=== PATIENT | female | born 1930 | race Caucasian/White ===

== ENCOUNTER → 2016-07-01 10:31 | Outpatient (CLI) | payer MEDICARE, OTHER ==
[2015-11-29 11:46] VITALS: BMI 25.0
[~2016-07-01 10:31] MED LIST: ACIDOPHILUS LAC1 CAP PO; ATIVAN0.5 MG PO; BACTRIM 400-801 TAB PO; BROVANA15 MCG/2 M INH; CYCLOBENZAPRINE5 MG PO; DALIRESP500 MCG PO; ELIQUIS2.5 MG PO; FLORASTOR250 MG PO; HCTZ25 MG PO; HYDROCODONE-APA1 TAB PO; IPRAT-ALBUT 0.5-3 ML UPD; LOPRESSOR25 MG PO; LOVENOX40 MG/0.4 SC; MAXIPIME 1 GM/D51 G1 IV; MUCINEX600 MG PO; ONDANSETRON4 MG/2 M3 IV; OXYCODONE HCL5 MG PO; PREDNISONE20 MG PO; PROTONIX40 MG PO; PROVENTIL/2.5 MG/3 M INH; PULMICORT0.5 MG/21 UPD; SENOKOT-S TABLE1 TAB PO; SINGULAIR10 MG PO; TESSALON PERLE100 MG PO; VANCOMYCIN 1 GM/1 G1 IV; XOPENEX 1.1.25 MG/3 UPD
== END | disposition home or self-care (01) ==
LOC: D.RT 06-08 09:00
DX: J44.9 Chronic obstructive pulmonary disease, unspecified (principal)

== ENCOUNTER → 2016-11-02 16:55 | Outpatient (CLI) | payer MEDICARE, OTHER ==
[2015-11-29 11:46] VITALS: BMI 25.0
== END | disposition home or self-care (01) ==
LOC: D.MAMMO 10:30
DX: N63 Unspecified lump in breast (principal)

== ENCOUNTER → 2016-11-19 08:55 | Outpatient (CLI) | payer MEDICARE, OTHER ==
[2015-11-29 11:46] VITALS: BMI 25.0
== END | disposition home or self-care (01) ==
LOC: D.US 08:55
DX: R92.8 Other abnormal and inconclusive findings on diagnostic imaging of breast (principal)

== ENCOUNTER → 2016-12-13 12:56 | Outpatient (CLI) | payer MEDICARE, OTHER ==
[2015-11-29 11:46] VITALS: BMI 25.0
[~2016-12-13 12:56] MED LIST changes: +BIOTIN5 MG PO
== END | disposition home or self-care (01) ==
LOC: D.LAB 08:30 → D.RAD 09:00
DX: J44.9 Chronic obstructive pulmonary disease, unspecified (principal)

== ENCOUNTER 2016-12-28 06:27 | Day surgery (SDC) | payer MEDICARE, OTHER ==
[~2016-12-28 06:27] MED LIST changes: -BIOTIN5 MG PO
[2016-12-28 07:32] LABS: BASOPHILS 0.4 % (0-2); EOSINOPHILS 2.9 % (0-7); HEMATOCRIT 42.3 % (36.0-48.0); HEMOGLOBIN 13.4 g/dL (12-16); LYMPHOCYTES 18.5 % (15-50); MCH 31.9 pg (26.0-34.0); MCHC 31.7 g/dL (31.0-37.0); MCV 100.7 fL (80.0-100.0); MEAN PLATELET VOLUME 10.2 fL (7.4-10.4); NEUTROPHILS 65.2 % (40-80); RDW 12.1 % (11.5-14.5); WBC 5.5 10x3/uL (4.8-10.8)
[2016-12-28 07:44] LABS: PLATELET COUNT 238 10x3/uL (130-400)
[2016-12-28 07:45] LABS: ANION GAP 8.3 mmol/L (8-16); CALCIUM 9.7 mg/dL (8.5-10.1); CARBON DIOXIDE 35.7 mmol/L (21.0-32.0); CREATININE - SERUM 0.9 mg/dL (0.6-1.3)
[2016-12-28 07:54] LABS: APTT 28.2 SECONDS (22.8-39.4); INR 0.95 (0.85-1.17); PROTIME 12.5 SECONDS (11.6-15.0)
[2016-12-28] MEDS ORDERED: PROVENTIL/2.5 MG/3 M INH (10:15)
[2016-12-28] MEDS ORDERED: BIOTIN5 MG PO (10:21)
[2016-12-28 10:29] VITALS: BP 153/82; BMI 25.9
[2016-12-28] MEDS ORDERED: HYDROCODONE-APA1 TAB PO (12:36)
--- NOTE | 2016-12-28 14:40 | NUR ---
PATIENT AMBULATES TO BATHROOM AND VOIDS LARGE AMOUNT IN TOILET WITHOUT DIFFICULTY. PATIENT REMAINS ON 3 LPM NC O2, PATIENT REPORTS THAT SHE WEARS O2 AT ALL TIMES AT HOME AND THAT HER CURRENT AMOUNT OF SHORTNESS OF BREATH IS HER NORMAL. RIGHT WRIST PIV DC'D WITH TIP INTACT. PATIENT DRESSING IN PERSONAL CLOTHING
--- NOTE | 2016-12-28 14:45 | NUR ---
1435 ATE FULL LIQUID DIET. NO COMPLAINTS OF NAUSEA VOICED. 1 NORCO 10/325MG PO FOR PAIN. RANKS PAIN 3. Dany BISWAS R.N.
--- NOTE | 2016-12-28 14:57 | NUR ---
1440 REPORT TO Dany LEON R.N.. Dany BISWAS R.N.
--- NOTE | 2016-12-28 15:00 | NUR ---
DISCHARGE INSTRUCTIONS REVIEWED WITH PATIENT AND SON, DISCHARGED HOME VIA WHEELCHAIR TO PRIVATE VEHICLE WITH SON
--- NOTE | 2016-12-31 13:11 | OP ---
PATIENT NAME: JING MORALEZ MEDICAL RECORD: [id number] :30 LOCATION:[facility] ADMISSION DATE: SURGEON: PHILIP AVENDAÑO MD DATE OF OPERATION: 12/28/2016 PREOPERATIVE DIAGNOSES: 1. Left breast cancer. 2. Chronic obstructive pulmonary disease. 3. Hypertension. 4. Atrial fibrillation. 5. History of deep venous thrombosis. POSTOPERATIVE DIAGNOSES: 1. Left breast cancer. 2. Chronic obstructive pulmonary disease. 3. Hypertension. 4. Atrial fibrillation. 5. History of deep venous thrombosis. PROCEDURE: Left breast lumpectomy with left axillary sentinel lymph node biopsy. SURGEON: Philip Avendaño MD REPORT OF PROCEDURE: Preoperatively, the patient had lymphoscintigraphy performed. The patient was taken to the operating room, and the left breast and axilla were prepped and draped in sterile fashion. She had a large palpable mass in the left upper outer quadrant of the chest at about the 1 o'clock position. A transverse incision was made overlying this and we dissected out the mass with the surrounding fatty and breast tissue. This was marked appropriately and sent off for permanent specimen. We then approached the left axilla. A skin incision was made on the inferior-anterior aspect of the axilla and electrocautery was used to dissect through the subcutaneous tissue and into the axillary fascia. Once inside the axilla, then a Neoprobe was used to find the sentinel lymph node. We were eventually able to find this lymph node. This was mildly enlarged and irregular. We completely excised it and used clips to tie off any surrounding lymphatics. The mass had a total reading of 3700. We did not find any other lesions in the axilla with the reading that would warrant removal. We then irrigated out the wounds with normal saline and then with sterile water. We assured there was no sign of any active bleeding. The subcutaneous tissues were reapproximated with interrupted 3-0 Vicryl and the skin incisions were closed with subcutaneous 5-0 Monocryl. The wounds were then dressed appropriately and infused with a total of 10 mL of 0.25% Marcaine with epinephrine. COMPLICATIONS: None. CONDITION: Stable. ANESTHESIA: General endotracheal and local. BLOOD LOSS: Minimal. TRANSINT:[id number] Voice Confirmation ID: [id number] DOCUMENT ID: [id number] OPERATIVE REPORT [id number] JING MORALEZ PHILIP AVENDAÑO MD at 1311 CC: MITCH SUMMERS MD [id number] DICTATION DATE: 12/28/16 1234 [employer] INSPECTOR: 12/28/16 1252 [facility] 12/28/16 [facility] [address] [place] [address]
== END 2016-12-28 15:00 | disposition home or self-care (01) ==
LOC: D.OPS 06:27 → D.NM 08:30 → D.PAN 08:30 → D.OPS 15:00
PROVIDERS: Anesthesiology; Surgery
DX: C50.912 Malignant neoplasm of unspecified site of left female breast (principal); J44.9 Chronic obstructive pulmonary disease, unspecified; I10 Essential (primary) hypertension; I48.91 Unspecified atrial fibrillation; Z86.718 Personal history of other venous thrombosis and embolism; Z01.812 Encounter for preprocedural laboratory examination

== ENCOUNTER 2017-01-14 03:42 | Inpatient (IN) | payer MEDICARE, OTHER ==
[~2017-01-14 03:42] MED LIST changes: +BIOTIN5 MG PO
[2017-01-14 04:31] LABS: BASOPHILS 0.2 % (0-2); EOSINOPHILS 0.1 % (0-7); HEMATOCRIT 42.5 % (36.0-48.0); HEMOGLOBIN 13.3 g/dL (12-16); IMMATURE GRANULOCYTES 0.2 % (0-5); LYMPHOCYTES 7.1 % (15-50); MCH 31.6 pg (26.0-34.0); MCHC 31.3 g/dL (31.0-37.0); MEAN PLATELET VOLUME 10.4 fL (7.4-10.4); MONOCYTES 13.8 % (2-11); NEUTROPHILS 78.6 % (40-80); PLATELET COUNT 253 10x3/uL (130-400); RBC 4.21 10x6/uL (4.00-5.40); RDW 11.9 % (11.5-14.5); WBC 14.4 10x3/uL (4.8-10.8)
[2017-01-14 04:47] LABS: ALBUMIN 3.8 g/dL (3.4-5.0); ANION GAP 8.8 mmol/L (8-16); BILIRUBIN - TOTAL 0.5 mg/dL (0.2-1.3); CALCIUM 9.6 mg/dL (8.5-10.1); CARBON DIOXIDE 34.5 mmol/L (21.0-32.0); CREATININE - SERUM 0.9 mg/dL (0.6-1.3); POTASSIUM - SERUM 4.3 mmol/L (3.5-5.1); PROTEIN - SERUM 7.7 g/dL (6.4-8.2)
--- NOTE | 2017-01-14 07:59 | NUR ---
AASSESSMENT DONE. SON AT SIDE
[2017-01-14 08:00] VITALS: BP 147/57
--- NOTE | 2017-01-14 08:50 | NUR ---
UP SOB WITH CALL LIGHT N REACH. NO NEEDS VOICED. WILL MONITOR.
[2017-01-14 12:00] VITALS: BP 138/69
--- NOTE | 2017-01-14 16:58 | NUR ---
SCDS APPLIED PAIGE. MACHINE ON
[2017-01-14 18:02] VITALS: BP 162/57
--- NOTE | 2017-01-14 18:22 | NUR ---
WITHOUT CHANGES NOTED AT THIS TIME.
--- NOTE | 2017-01-14 19:28 | NUR ---
PATIENT TAKEN TO CT VIA BED, O2 IN PLACE.
[2017-01-14 20:00] VITALS: BP 143/63
--- NOTE | 2017-01-14 21:11 | NUR ---
PATIENT RETURNED FROM CT, RR, DENIES PAIN OR NEEDS AT THIS TIME. CALL LIGHT IN REACH.
--- NOTE | 2017-01-14 21:53 | NUR ---
PT RESTING WITH EYES CLOSED. RESP EVEN AND REGULAR. SR UP X2, CALL LIGHT WITHIN REACH.
[2017-01-15] VITALS: BP 127/70
[2017-01-15 04:00] VITALS: BP 148/73
[2017-01-15 08:16] VITALS: BP 131/69
--- NOTE | 2017-01-15 10:31 | NUR ---
PT LAYING TO R SIDE SLEEPING. ARROUSES EASILY DENIES ANY NEEDS.
--- NOTE | 2017-01-15 10:54 | NUR ---
ASSESSMENT COMPLETE. PATIENT IS UNCOMFORTABLE AND C/O DIFFICULTY CATCHING HER BREATH. PATIENT REQUESTS WATER WITH HER OXYGEN, BUT SHE IS ON A OXIMIZER SO WE ARE UNABLE TO ADD MOISTURE TO HER O2 AT THIS TIME. TELEMETRY SHOWS 108 SINUS TACHY. PATIENT REFUSES HER SCD'S. IV IN R FOREARM IS PATIENT WITH NS AT 50ML/HR. OXYGEN AT 4L.
[2017-01-15 11:23] VITALS: BP 107/56
[2017-01-15 13:18] VITALS: BMI 28.3
--- NOTE | 2017-01-15 15:43 | NUR ---
PATIENT UNCOMFORTABLE, REPORTS ANXIETY. ORDER SUBMITTED FOR XANAX, AND PATIENT TREATED. TELEMETRY SHOWS SR 112. PATIENT IS GASPING FOR AIR AND DOES NOT WANT TO TALK OR EAT BECAUSE SHE FEELS LIKE SHE IS STRUGGLING TO BREATHE.
[2017-01-15 15:46] VITALS: BP 143/59
--- NOTE | 2017-01-15 16:10 | NUR ---
PATIENT SITTING UP AND REPORTS REDUCED ANXIETY. C/O HEADACHE. GIVEN A PUDDING CUP. PATIENT HAS A WET COUGH WITH NO SPUTUM. OXYGEN AT 4.5 LITERS VIA NASAL CANNULA. TELEMETRY SHOWS 116 SR.
[2017-01-15 20:00] VITALS: BP 132/56
[2017-01-16] VITALS: BP 15/75
--- NOTE | 2017-01-16 01:30 | NUR ---
PT RESTING WELL WITHOUT C/O OR DISTRESS NTOED. CALL LIGHT WITHIN REACH. WILL CONT TO MONITOR.
[2017-01-16 06:39] LABS: BASOPHILS 0 % (0-2); EOSINOPHILS 0 % (0-7); HEMATOCRIT 41.2 % (36.0-48.0); HEMOGLOBIN 13.3 g/dL (12-16); IMMATURE GRANULOCYTES 0.1 % (0-5); LYMPHOCYTES 2.7 % (15-50); MCH 32.4 pg (26.0-34.0); MCHC 32.3 g/dL (31.0-37.0); MCV 100.2 fL (80.0-100.0); MEAN PLATELET VOLUME 10.8 fL (7.4-10.4); MONOCYTES 7.6 % (2-11); NEUTROPHILS 89.6 % (40-80); PLATELET COUNT 262 10x3/uL (130-400); RBC 4.11 10x6/uL (4.00-5.40); RDW 11.6 % (11.5-14.5); WBC 11.4 10x3/uL (4.8-10.8)
[2017-01-16 07:01] LABS: CALC OSMOLALITY 280 mosm/kg (275-300); CALCIUM 9.5 mg/dL (8.5-10.1); CARBON DIOXIDE 35.8 mmol/L (21.0-32.0); CHLORIDE - SERUM 97 mmol/L (98-107); CREATININE - SERUM 0.7 mg/dL (0.6-1.3); GLUCOSE 142 mg/dL (74-106); MAGNESIUM - SERUM 2.1 mg/dL (1.8-2.4); POTASSIUM - SERUM 4.3 mmol/L (3.5-5.1); SODIUM 139 mmol/L (136-145); UREA NITROGEN 15 mg/dL (7-18); eGFR NON AFRICAN AMERICAN 84 mL/min (90-120)
[2017-01-16 08:00] VITALS: BP 95/65
--- NOTE | 2017-01-16 11:51 | NUR ---
SITTING UP IN BED, ON 4 L VIA NASAL CANNULA. C/O SORTNESS OF BREATH. HAS BEEN TREATED FOR HER ANXIETY ORDERED. PATIENT IS RESTLESS. TELEMETY SHOWS 124 SR. BREATHING WITH FULL BODY EFFORT. SHE IS HAVING DIFFUCULT SPEAKING OR EATING. USING BEDPAN WITH ASSISTANCE.
[2017-01-16 12:00] VITALS: BP 152/84
--- NOTE | 2017-01-16 12:08 | NUR ---
ROUNDING DONE WITH PATIENT SEEN ON 4L PER NC. NO NEEDS VOICED AT THIS TIME. SLIGHT WHEEZING HEARD TRHOUGHOUT LUNG DIALLO. WILL MONITOR.
--- NOTE | 2017-01-16 15:55 | NUR ---
C/O SHORTNESS OF BREATH. LAYING ON RIGHT SIDE. OXYGEN AT 4 LITERS VIA NASAL CANNULA. PATIENT WILL REQUEST TO USE THE BED ADHIKARI. TELEMETRY SHOWS SINUS TACH 113. RIGHT WRIST IV WITH NS AT 50ML/HR. DRESSING IS CLEAN DRY INTACT.
[2017-01-16 16:00] VITALS: BP 134/66
--- NOTE | 2017-01-16 17:32 | NUR ---
RESTING ON RIGHT SIDE. SHE IS LESS ANXIOUS AT THIS TIME. ON 4 L VIA NASAL CANNULA WITH HUMIDITY. TELEMETRY SHOWS 119 SINUS TACH. DENIES ANY NEEDS AT THIS TIME.
--- NOTE | 2017-01-16 18:05 | NUR ---
D/C NORMAL SALINE. R FOREARM IV IS INTACT.
--- NOTE | 2017-01-16 19:00 | NUR ---
RECEIVED REPORT AND ASSUMED PT CARE FROM DAY SHIFT NURSE @ THIS TIME.
[2017-01-16 20:00] VITALS: BP 151/58
--- NOTE | 2017-01-16 22:31 | NUR ---
PT ASSISTED TO BR. NO NEEDS VOICED. DENIES ANY C/O PAIN. SOME SOB NOTED ON EXERTION. ASSISTED BACK TO BED, CALL LIGHT PLACED WITHIN REACH. WILL CONT TO MONITOR.
[2017-01-17] VITALS: BP 150/73
[2017-01-17 04:00] VITALS: BP 161/80
[2017-01-17 06:04] LABS: BASOPHILS 0.1 % (0-2); EOSINOPHILS 0 % (0-7); HEMOGLOBIN 13.8 g/dL (12-16); IMMATURE GRANULOCYTES 0.4 % (0-5); LYMPHOCYTES 8.3 % (15-50); MCH 31.2 pg (26.0-34.0); MCHC 30.7 g/dL (31.0-37.0); MCV 101.6 fL (80.0-100.0); MEAN PLATELET VOLUME 10.7 fL (7.4-10.4); MONOCYTES 13.6 % (2-11); NEUTROPHILS 77.6 % (40-80); PLATELET COUNT 291 10x3/uL (130-400); RBC 4.43 10x6/uL (4.00-5.40); RDW 11.8 % (11.5-14.5); WBC 11.2 10x3/uL (4.8-10.8)
[2017-01-17 06:19] LABS: CALC OSMOLALITY 284 mosm/kg (275-300); CALCIUM 9.9 mg/dL (8.5-10.1); CARBON DIOXIDE 39.9 mmol/L (21.0-32.0); CHLORIDE - SERUM 99 mmol/L (98-107); CREATININE - SERUM 0.7 mg/dL (0.6-1.3); GLUCOSE 114 mg/dL (74-106); MAGNESIUM - SERUM 2.2 mg/dL (1.8-2.4); POTASSIUM - SERUM 4.2 mmol/L (3.5-5.1); SODIUM 142 mmol/L (136-145); UREA NITROGEN 16 mg/dL (7-18); eGFR NON AFRICAN AMERICAN 84 mL/min (90-120)
[2017-01-17 08:39] VITALS: BP 143/63
[2017-01-17 13:37] VITALS: BP 141/71
--- NOTE | 2017-01-17 15:44 | NUR ---
THIS SHIFT PT HAS BEEN AMBULATING TO BR. SAT UP IN CHAIR FOR MEALS. O2 AT 4L NC. SEE ASSESSMENT FOR FURTHER EVAL.
[2017-01-17 16:04] VITALS: BP 158/74
[2017-01-17 22:18] VITALS: BP 155/80
[2017-01-18 02:50] VITALS: BP 158/63
[2017-01-18 05:35] VITALS: BP 140/79
[2017-01-18 05:43] LABS: BASOPHILS 0.1 % (0-2); EOSINOPHILS 0.4 % (0-7); HEMATOCRIT 44.6 % (36.0-48.0); HEMOGLOBIN 13.6 g/dL (12-16); IMMATURE GRANULOCYTES 0.4 % (0-5); LYMPHOCYTES 6.2 % (15-50); MCH 31.7 pg (26.0-34.0); MCHC 30.5 g/dL (31.0-37.0); MEAN PLATELET VOLUME 10.5 fL (7.4-10.4); MONOCYTES 11.2 % (2-11); NEUTROPHILS 81.7 % (40-80); PLATELET COUNT 244 10x3/uL (130-400); RBC 4.29 10x6/uL (4.00-5.40); RDW 12.1 % (11.5-14.5)
[2017-01-18 05:52] LABS: CALC OSMOLALITY 280 mosm/kg (275-300); CALCIUM 9.3 mg/dL (8.5-10.1); CARBON DIOXIDE 38.7 mmol/L (21.0-32.0); CHLORIDE - SERUM 96 mmol/L (98-107); CREATININE - SERUM 0.6 mg/dL (0.6-1.3); GLUCOSE 145 mg/dL (74-106); MAGNESIUM - SERUM 2.2 mg/dL (1.8-2.4); SODIUM 138 mmol/L (136-145); UREA NITROGEN 19 mg/dL (7-18); eGFR NON AFRICAN AMERICAN > 90 mL/min (90-120)
[2017-01-18 05:53] LABS: POTASSIUM - SERUM 5.2 mmol/L (3.5-5.1)
--- NOTE | 2017-01-18 06:18 | NUR ---
ASSESSMENT DONE. DENIES NEEDS.
[2017-01-18 08:32] VITALS: BP 178/79
--- NOTE | 2017-01-18 09:02 | NUR ---
RESTS IN BED WITHOUT DISCOMFORTS NOTED. RESP UL. SON AT BS. IV PATENT. CALL LIGHT IN REACH. WILL CONT. PLAN OF CARE.
--- NOTE | 2017-01-18 10:47 | NUR ---
PATIENTS SPO2 WAS 62% ON 5LNC. I SWITCHED A 15L OXYMIZER AND HER SPO2 RECOVERED TO 85%. PATIENT WILL NOT TOLERATE A NONREBREATHER.
[2017-01-18 12:34] VITALS: BP 171/73
--- NOTE | 2017-01-18 17:29 | NUR ---
WITHOUT CHANGES OR DISTRESS NOTED AT THIS TIME.
[2017-01-18 20:00] VITALS: BP 109/70
--- NOTE | 2017-01-18 21:51 | NUR ---
PT LYING IN BED ON HER RIGHT SIDE, AT FIRST RESTING COMFORTABLY. UPON VERBALLY ROUSING PT, SHE BEGAN IMMEDIATELY MOANING LOUDLY AND CONSTANTLY, REFUSED TO TAKE HER 21:00 MEDICATIONS AND UNABLE TO BE CONSOLED AT THIS TIME. I HAVE REORIENTED PT TO PLACE, TIME, AND SITUATION, HOWEVER, PT IS UNABLE TO RESPOND OR DEMONSTRATE ANY DEGREE OF ORIENTATION AT THIS TIME. PT CONTINUES TO MOAN CONTINUALLY. I WILL CONTINUE TO MONITOR PT CLOSELY. BED LOW, CALL LIGHT IN REACH, SIDE RAILS X 2, HOB 20 DEGREES.
--- NOTE | 2017-01-19 02:02 | NUR ---
NOTIFIED DISTRIBUTION MANAGER JAQUELINE NAIK @ 00:[address] DALLAS HAD PUT IN NEW ORDERS FOR PT INCLUDING CEFEPIME THAT I NEEDED PULLED. CURRENTLY STILL WAITING FOR MED TO BE PULLED.
[2017-01-19 04:00] VITALS: BP 179/60
[2017-01-19 05:40] LABS: BASOPHILS 0.1 % (0-2); EOSINOPHILS 0.3 % (0-7); HEMATOCRIT 49.7 % (36.0-48.0); HEMOGLOBIN 14.6 g/dL (12-16); LYMPHOCYTES 8.5 % (15-50); MCH 31.7 pg (26.0-34.0); MCHC 29.4 g/dL (31.0-37.0); MEAN PLATELET VOLUME 10.4 fL (7.4-10.4); MONOCYTES 18.3 % (2-11); NEUTROPHILS 71.8 % (40-80); PLATELET COUNT 255 10x3/uL (130-400); RBC 4.61 10x6/uL (4.00-5.40); RDW 11.8 % (11.5-14.5)
[2017-01-19 05:41] LABS: MCV 107.8 fL (80.0-100.0); WBC 8.7 10x3/uL (4.8-10.8)
[2017-01-19 05:59] LABS: CALCIUM 9.5 mg/dL (8.5-10.1); MAGNESIUM - SERUM 2.2 mg/dL (1.8-2.4)
--- NOTE | 2017-01-19 05:59 | NUR ---
PT HAS BEEN EXTREMELY AGITATED AND ANXIOUS THIS SHIFT. PT IS UNABLE TO BE CONSOLED, REFUSES TO TAKE ANY ORAL MEDICATIONS, AND LIES IN BED MOANING/GROANING LOUDLY AND CONTINUOUSLY. PT'S BED AND GOWN HAVE BEEN CHANGED R/T HER INCONTINENCE. WILL CONTINUE TO MONITOR CLOSELY.
[2017-01-19 06:40] LABS: ANION GAP 2.3 mmol/L (8-16); CREATININE - SERUM 0.8 mg/dL (0.6-1.3); POTASSIUM - SERUM 4.3 mmol/L (3.5-5.1)
--- NOTE | 2017-01-19 07:51 | NUR ---
ASSESSMENT DONE. SANDRA GRANADOS NOTED. SON NOTIFYED.
[2017-01-19 08:00] VITALS: BP 138/69
--- NOTE | 2017-01-19 08:36 | NUR ---
02/OXIMIZER. IV PATENT. RESTS WITH EYES CLOSED. WILL CONT. PLAN OF CARE.
--- NOTE | 2017-01-19 10:30 | NUR ---
Patient Name: JING MORALEZ Admission Status: ER Accout number: [id number] Admission Date: 01-14-2017 : 1930 Admission Diagnosis:CHRONIC OBSTRUCTIVE PULMONARY DISEASE, UNSPECIFIED Attending: CHAUNCEY VALLADARES Current LOS: 5 Anticipated DC Date: 01-19-2017 Planned Disposition: Hospice Medical Facility Primary Insurance: MEDICARE A & B PLANNED EXTERNAL PROVIDER: [facility] Discharge Planning Comments: * Is the patient Alert and Oriented? No 0 * Preadmission Environment Home Alone 0 * ADLs Independent 0 * List name and contact numbers for known caregivers / representatives who currently or will assist patient after discharge: DAMIEN LOCKETT, SON, 0 * Community resources currently utilized None 0 * Please name any agencies selected above. NONE 0 * Additional services required to return to the preadmission environment? Yes * Can the patient safely return to the preadmission environment? No 0 * Has this patient been hospitalized within the prior 30 days at any hospital? No 0 CM RECEIVED HOSPICE ORDER, ATTEMPTED TO MEET WITH PT AND FAMILY IN ROOM, PT NOT RESPONSIVE TO CM; BEDSIDE NURSE REPORTS PT'S SON WENT TO PT'S HOME TO TAKE CARE OF SOME THINGS. CM CALLED DAMIEN LOCKETT, , SON AND LISTED EMERGENCY CONTACT. DAMIEN HAS DISCUSSED HOSPICE WITH MEDICAL STAFF AND IS IN AGREEMENT WITH HOSPICE CARE FOR PT. CM DISCUSSED HOSPICE SERVICES AVAILABLE AND LOCATIONS PROVIDED. DAMIEN WOULD LIKE PT CONSIDERED FOR [facility] TO REMAIN AT [place] IF POSSIBLE. IMPORTANT MESSAGE FROM MEDICARE DISCUSSED, LEFT HARD COPY IN ROOM. CM CALLED [facility], , SPOKE TO KIKE, PROVIDED BASIC REFERRAL INFORMATION, FAXED REFERRAL TO [facility] AT [phone]. CM WAITING ON ARRIVAL OF [facility] NURSE FOR INPATIENT HOSPICE EVALUATION. Shoer: Stiven Hicks
--- NOTE | 2017-01-19 10:55 | NUR ---
Nutrition Follow Up: Chart reviewed. Noted pt is awaiting hospice eval. Pt is eating 25% meal avg on a regular diet. She is receiving Ensure BID. Wt loss noted. Labs reviewed. Meds noted including Solu-Medrol. Rec continue current diet. Will continue to honor food preferences. RD following.
[2017-01-19 11:51] VITALS: BP 131/47
--- NOTE | 2017-01-26 12:12 | CN ---
PATIENT NAME:JING MORALEZ MEDICAL RECORD: [id number] : 30 LOCATION:D. D.2126 ADMIT DATE: 01/14/17 ACCOUNT: [id number] CONSULTING PHYSICIAN: SHILA HERNANDEZ MD REFERRING PHYSICIAN: CHAUNCEY VALLADARES DO DATE OF CONSULTATION: 01/14/2017 CONSULT REQUESTING PHYSICIAN: Chauncey Valladares DO REASON FOR CONSULTATION: Acute exacerbation of COPD. HISTORY OF PRESENT ILLNESS: Ms. Moralez is an 86-year-old female who has a history of COPD, home oxygen dependent. The patient was admitted with acute shortness of breath to the ER. She was recently diagnosed with left CA of the breast. The patient is a very poor historian. History was taken by reviewing the patient's note as well as talking to Bri, the MEAT STOCKER. The patient has dyspnea on mild exertion. REVIEW OF SYSTEMS: Mainly in the history of present illness. PAST MEDICAL HISTORY: 1. COPD. 2. Recent left breast mass. 3. Chronic insomnia. 4. Chronic hypoxic respiratory failure. 5. Hypertension. 6. Idiopathic jaundice. 7. Lumbago. 8. History of cardiac arrhythmia. PAST SURGICAL HISTORY: 1. Appendectomy. 2. Hysterectomy. 3. Tonsillectomy. PERSONAL AND SOCIAL HISTORY: She is an ex-smoker. She is a nondrinker. FAMILY HISTORY: Noncontributory. PHYSICAL EXAMINATION: GENERAL: The patient is now lying comfortably in bed. She is in mild distress. She is not wearing her oxygen. VITAL SIGNS: The blood pressure is 138/69, pulse is 134, respiration is 28, temperature is 97.5, SpO2 is 87% on Venturi mask, but the patient is not wearing it. HEENT: Conjunctivae are pink, sclerae nonicteric. NECK: Supple, no JVD. CHEST: Excursion is minimal on both sides, wheeze on forceful expiration. HEART: Rhythm regular, normal sound, no murmur. ABDOMEN: Soft. Bowel sounds present. No hepatosplenomegaly. RECTAL: Deferred. EXTREMITIES: No cyanosis, no clubbing, no pedal edema. SKIN: Warm, normal turgor. CENTRAL NERVOUS SYSTEM: The patient is awake and alert, but the patient is very lethargic. No obvious cranial nerve abnormality. CONSULT REPORT [id number] JING MORALEZ CHEST RADIOGRAPH: There is hyperinflation, no acute infiltrate. OTHER LABORATORY DATA: CBC; WBC 14.4, hemoglobin 13.3, hematocrit 42.5, the platelet count is 253. Chemistry; sodium 136, potassium 4.3, BUN is 14, creatinine is 0.9, glucose 133. IMPRESSION: 1. Acute hypoxic respiratory failure. 2. Acute exacerbation of chronic obstructive pulmonary disease. 3. Tracheobronchitis. 4. Cancer of breast. 5. Leukocytosis. RECOMMENDATION: 1. Continue Brovana nebulizer. Start her on Flovent inhaler. 2. Methylprednisolone IV. 3. Levaquin IV. 4. I will hold the prednisone. 5. I will check a D-dimer; if it is positive, we will proceed with a CTA of the chest. Dr. Valladares thank you for involving me in the care of Ms. Moralez. TRANSINT:[id number] Voice Confirmation ID: [id number] DOCUMENT ID: [id number] SHILA HERNANDEZ MD at 1212 CC: MITCH SUMMERS MD [id number] DICTATION DATE: 01/14/17 1626 DIAL BUFFER: 01/14/17 1807 DIS IN 01/19/17 [address] [id number] [place] [address]
== END 2017-01-19 12:02 | disposition hospice, inpatient (51) | DRG 193 ==
LOC: D.ER 03:42 → D.M2 05:15
PROVIDERS: Emergency Medicine; Internal Medicine Pulmonary Disease; ADMIT Family Medicine
PROC: 5A09357 Assistance with Respiratory Ventilation, Less than 24 Consecutive Hours, Continuous Positive Airway Pressure (ICD-10-PCS; principal; 2017-01-14)
DX: J18.9 Pneumonia, unspecified organism (principal); J96.21 Acute and chronic respiratory failure with hypoxia; J44.0 Chronic obstructive pulmonary disease with (acute) lower respiratory infection; J44.1 Chronic obstructive pulmonary disease with (acute) exacerbation; I10 Essential (primary) hypertension; K21.9 Gastro-esophageal reflux disease without esophagitis; Z66 Do not resuscitate; C50.912 Malignant neoplasm of unspecified site of left female breast; Z87.891 Personal history of nicotine dependence

== ENCOUNTER 2017-01-19 12:36 | Inpatient (IN) | payer OTHER ==
--- NOTE | 2017-01-19 12:42 | NUR ---
ADMIT A HOSPICE PT TO ROOM 2126 ADMIT ASSESSMEMNT PER RN
[2017-01-19 12:56] VITALS: BP 131/47
--- NOTE | 2017-01-19 17:52 | NUR ---
WITHOUT CHANGES OR DISTRESS NOTED AT THIS TIME. FAMILY AT SIDE.
--- NOTE | 2017-01-19 20:03 | NUR ---
INITIAL NURSING ROUND @ 19:30 - PT LYING IN BED, UNRESPONSIVE, LABORED, GUPPY BREATHING, CYANOTIC IN COLOR. PTS TELEMETRY SHOWED A DROP IN HR TO 30, PT FOUND UNRESPONSIVE, PULSELESS, AND NONBREATHING. I HAVE NOTIFIED PTS SON, MR. LOCKETT [phone]. I HAVE ALSO NOTIFIED [facility] AND AWAITING FURTHER ORDERS.
--- NOTE | 2017-01-19 20:07 | NUR ---
KYLER WITH [facility] HAS BEEN NOTIFIED, STATED SHE WAS IN [place] BUT WOULD BE HERE SOON POSSIBLE.
--- NOTE | 2017-01-19 22:36 | NUR ---
RECORD OF COMPLETE, [facility] HAS RECEIVED PT PER FAMILY REQUEST.
== END 2017-01-19 23:12 | DRG 951 ==
LOC: D.M2 12:36
PROVIDERS: ADMIT Legal Medicine
DX: Z51.5 Encounter for palliative care (principal)